=== PATIENT | male | born 2000 | race Caucasian/White ===

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

== ENCOUNTER 2018-06-16 22:11 | Emergency (ER) | payer SELFPAY ==
[~2018-06-16] VITALS: Ht 162.6 cm; Wt 77.3 kg
[~2018-06-16 22:11] MED LIST changes: +AMOXICILLIN 8751 TAB PO
[2018-06-16 22:19] VITALS: BP 140/80; PULSE 85; TEMP 98
[2018-06-16 23:31] LABS: COLLECTION METHOD CLEAN CATCH
[2018-06-16 23:38] LABS: PH 5 (5-8); SQUAMOUS EPITHELIAL None Seen /hpf; URINE APPEARANCE Clear; URINE BACTERIA None Seen /hpf; URINE BILIRUBIN Negative (NEGATIVE); URINE BLOOD Negative (NEGATIVE); URINE COLOR Yellow; URINE GLUCOSE Negative (NEGATIVE); URINE KETONE Negative (NEGATIVE); URINE LEUKOCYTE ESTERASE Negative (NEGATIVE); URINE NITRATE Negative (NEGATIVE); URINE PROTEIN(semi-quant) Negative (NEGATIVE); URINE RBC 0-2 /hpf; URINE UROBILINOGEN Negative (NEGATIVE)
== END 2018-06-17 01:33 | disposition home or self-care (01) ==
LOC: COL.ER 22:11
PROVIDERS: Physician Assistant
DX: N43.3 Hydrocele, unspecified (principal)